=== PATIENT | female | born 1985 | race Caucasian/White ===

== ENCOUNTER 2019-05-16 19:00 | Emergency (ER) | payer MEDICAID ==
[~2019-05-16] VITALS: Ht 167.6 cm; Wt 65.0 kg
[2019-05-16 19:05] VITALS: BP 123/83; TEMP 98.4
[2019-05-16] MEDS ORDERED: PEN-VEE K500 MG PO ×2 (19:17→19:33)
[2019-05-16 19:37] VITALS: PULSE 88
== END 2019-05-16 19:36 | disposition home or self-care (01) ==
LOC: COL.ER 19:00
DX: K08.89 Other specified disorders of teeth and supporting structures (principal); F17.210 Nicotine dependence, cigarettes, uncomplicated

== ENCOUNTER 2019-06-15 12:04 | Emergency (ER) | payer MEDICAID ==
[~2019-06-15] VITALS: Ht 167.6 cm; Wt 62.7 kg
[~2019-06-15 12:04] MED LIST: PEN-VEE K500 MG PO
[2019-06-15 12:13] VITALS: BP 129/97; TEMP 98.5
[2019-06-15] MEDS ORDERED: MOTRIN 800800 MG/TAB PO (13:57)
[2019-06-15] MEDS ORDERED: AMOXICILLIN 50500 MG PO (13:57)
[2019-06-15 14:09] VITALS: PULSE 83
== END 2019-06-15 14:09 | disposition home or self-care (01) ==
LOC: COL.ER 12:04
DX: K02.9 Dental caries, unspecified (principal); K04.7 Periapical abscess without sinus; J06.9 Acute upper respiratory infection, unspecified; Z87.891 Personal history of nicotine dependence

== ENCOUNTER 2020-01-14 09:33 | Emergency (ER) | payer MEDICAID ==
[~2020-01-14] VITALS: Ht 167.6 cm; Wt 66.4 kg
[~2020-01-14 09:33] MED LIST changes: +AMOXICILLIN 50500 MG PO; +MOTRIN 800800 MG/TAB PO
[2020-01-14 09:35] VITALS: TEMP 98.5
[2020-01-14 10:13] LABS: COLLECTION METHOD CLEAN CATCH
[2020-01-14 10:19] LABS: BASO % 0.2 % (0.0-2.0); EOS % 0.1 % (0-4.0); GRAN # 15.8 (1.4-6.5); GRAN % 89.2 % (42.2-75.2); HEMOGLOBIN 13.8 g/dl (12.5-16.0); LYMPH % 5.7 % (20.0-51.0); MEAN CELL VOLUME 86 fl (80.0-100.0); MEAN CORPUSCULAR HEMOGLOBIN 30 pg (27.0-31.0); MEAN CORPUSCULAR HGB CONC 35 g/dl (33.0-37.0); MEAN PLATELET VOLUME 10.1 fl (7.4-10.4); MONO # 0.8 (0.1-0.6); MONO % 4.4 % (1.7-9.3); PLATELET COUNT 233 K/mm3 (130-400); RED BLOOD COUNT 4.67 M/mm3 (4.10-5.30); REDCELL DISTRIBUTION WIDTH-CV 11.6 % (11.5-14.5)
[2020-01-14 10:24] LABS: MUCOUS Present /lpf; PH 8 (5-8); SQUAMOUS EPITHELIAL 0-2 /hpf; URINE APPEARANCE Hazy; URINE BACTERIA None Seen /hpf; URINE BILIRUBIN Negative (NEGATIVE); URINE BLOOD Negative (NEGATIVE); URINE COLOR Yellow; URINE GLUCOSE Negative (NEGATIVE); URINE KETONE Negative (NEGATIVE); URINE LEUKOCYTE ESTERASE Negative (NEGATIVE); URINE NITRATE Negative (NEGATIVE); URINE PROTEIN(semi-quant) Negative (NEGATIVE); URINE RBC 0-2 /hpf; URINE UROBILINOGEN Negative (NEGATIVE)
[2020-01-14 10:33] LABS: ALANINE AMINOTRANSFERASE 10 U/L (4-34); ALBUMIN 4.2 gm/dL (3.5-5.0); ALKALINE PHOSPHATASE 70 U/L (50-136); ANION GAP 8 mmol/L (7-16); AST,SGOT 20 U/L (15-37); BILIRUBIN,TOTAL 0.7 mg/dL (0.0-1.0); BLOOD UREA NITROGEN 17 mg/dL (7-17); CALCIUM 8.6 mg/dL (8.4-10.2); CARBON DIOXIDE 22 mmol/L (22-30); CHLORIDE 106 mmol/L (98-107); CREATININE, serum 0.67 (0.52-1.25); GLUCOSE 102 mg/dL (74-106); LIPASE 55 U/L (23-300); SODIUM 136 mmol/L (137-145); TOTAL PROTEIN 7.6 gm/dL (6.4-8.2)
[2020-01-14 10:34] LABS: C-REACTIVE PROTEIN < 0.5 mg/dL (0.0-0.9)
[2020-01-14] MEDS ORDERED: PHENERGAN 25 TA25 MG PO (11:30)
[2020-01-14 13:18] VITALS: BP 99/64; PULSE 100
== END 2020-01-14 13:29 | disposition home or self-care (01) ==
LOC: COL.ER 09:33
PROVIDERS: Emergency Medicine
DX: R11.2 Nausea with vomiting, unspecified (principal); R10.9 Unspecified abdominal pain; Z87.891 Personal history of nicotine dependence
CPT/HCPCS: C9113; J1885; J2405; J2550; J7030

== ENCOUNTER 2020-12-04 17:30 | Emergency (ER) | payer MEDICAID ==
[~2020-12-04] VITALS: Ht 167.6 cm; Wt 62.3 kg
[~2020-12-04 17:30] MED LIST changes: +PHENERGAN 25 TA25 MG PO
[2020-12-04 17:42] VITALS: TEMP 98.1
[2020-12-04] MEDS ORDERED: FLEXERIL 1010 MG/TAB PO (17:57)
[2020-12-04] MEDS ORDERED: MEDROL 4MG DOSPA4 MG PO (17:58)
[2020-12-04 18:57] VITALS: BP 138/98; PULSE 77
== END 2020-12-04 19:02 | disposition home or self-care (01) ==
LOC: COL.ER 17:30
DX: M62.838 Other muscle spasm (principal); Z87.891 Personal history of nicotine dependence
CPT/HCPCS: J1885

== ENCOUNTER 2020-12-16 14:59 | Emergency (ER) | payer MEDICAID ==
[~2020-12-16] VITALS: Ht 167.6 cm; Wt 63.6 kg
[~2020-12-16 14:59] MED LIST changes: +FLEXERIL 1010 MG/TAB PO; +MEDROL 4MG DOSPA4 MG PO
[2020-12-16 15:07] VITALS: TEMP 99.2
[2020-12-16 16:00] LABS: COLLECTION METHOD CLEAN CATCH
[2020-12-16 16:05] LABS: BASO % 0.6 % (0.0-2.0); EOS % 0.3 % (0-4.0); GRAN # 2.1 (1.4-6.5); GRAN % 65.2 % (42.2-75.2); HEMATOCRIT 44.9 % (37.0-47.0); HEMOGLOBIN 15.1 g/dl (12.5-16.0); LYMPH # 0.6 (1.2-3.4); LYMPH % 19.6 % (20.0-51.0); MEAN CELL VOLUME 88 fl (80.0-100.0); MEAN CORPUSCULAR HEMOGLOBIN 30 pg (27.0-31.0); MEAN CORPUSCULAR HGB CONC 34 g/dl (33.0-37.0); MONO # 0.4 (0.1-0.6); MONO % 13.7 % (1.7-9.3); PLATELET COUNT 199 K/mm3 (130-400); RED BLOOD COUNT 5.08 M/mm3 (4.10-5.30); REDCELL DISTRIBUTION WIDTH-CV 11.2 % (11.5-14.5)
[2020-12-16 16:17] LABS: ALBUMIN 4.3 gm/dL (3.5-5.0); BILIRUBIN,TOTAL 0.2 mg/dL (0.0-1.0); C-REACTIVE PROTEIN 0.7 mg/dL (0.0-0.9); CALCIUM 8.7 mg/dL (8.4-10.2); CREATININE, serum 0.87 (0.52-1.25); POTASSIUM 3.3 mmol/L (3.4-5.0); TOTAL PROTEIN 7.8 gm/dL (6.4-8.2)
[2020-12-16 16:27] LABS: MUCOUS Present /lpf; PH 5 (5-8); URINE APPEARANCE Hazy; URINE BACTERIA None Seen /hpf; URINE BILIRUBIN Negative (NEGATIVE); URINE BLOOD Negative (NEGATIVE); URINE COLOR Amber; URINE GLUCOSE Negative (NEGATIVE); URINE KETONE Trace (NEGATIVE); URINE LEUKOCYTE ESTERASE Negative (NEGATIVE); URINE NITRATE Negative (NEGATIVE); URINE PROTEIN(semi-quant) 1+ (NEGATIVE); URINE UROBILINOGEN Negative (NEGATIVE)
[2020-12-16] MEDS ORDERED: CIPRO 500MG TA500 MG PO (17:25)
[2020-12-16 17:51] VITALS: BP 110/71; PULSE 95
== END 2020-12-16 17:53 | disposition home or self-care (01) ==
LOC: COL.ER 14:59
PROVIDERS: Nurse Practitioner Primary Care
DX: U07.1 COVID-19 (principal); M62.838 Other muscle spasm; N39.0 Urinary tract infection, site not specified; F17.290 Nicotine dependence, other tobacco product, uncomplicated
CPT/HCPCS: J0696; J7030

== ENCOUNTER 2021-06-29 12:19 | Emergency (ER) | payer MEDICAID ==
[~2021-06-29] VITALS: Ht 167.6 cm; Wt 66.8 kg
[~2021-06-29 12:19] MED LIST changes: +CIPRO 500MG TA500 MG PO
[2021-06-29 12:34] VITALS: TEMP 98
[2021-06-29 13:01] LABS: COLLECTION METHOD CLEAN CATCH
[2021-06-29 13:05] LABS: BASO % 0.5 % (0.0-2.0); EOS # 0.1 K/mm3 (0.0-0.7); EOS % 1.4 % (0-4.0); GRAN # 3.9 K/mm3 (1.4-6.5); HEMATOCRIT 42.4 % (37.0-47.0); HEMOGLOBIN 14.1 g/dl (12.5-16.0); LYMPH # 1.5 K/mm3 (1.2-3.4); LYMPH % 25.3 % (20.0-51.0); MEAN CELL VOLUME 90 fl (80.0-100.0); MEAN CORPUSCULAR HEMOGLOBIN 30 pg (27.0-31.0); MEAN CORPUSCULAR HGB CONC 33 g/dl (33.0-37.0); MONO # 0.3 K/mm3 (0.1-0.6); MONO % 5.6 % (1.7-9.3); PLATELET COUNT 284 K/mm3 (130-400); RED BLOOD COUNT 4.72 M/mm3 (4.10-5.30); REDCELL DISTRIBUTION WIDTH-CV 11.6 % (11.5-14.5)
[2021-06-29 13:15] LABS: MUCOUS Present (NOT PRESENT); PH 5 (5-8); URINE APPEARANCE Hazy (CLEAR/HAZY); URINE BACTERIA None Seen (NONE SEEN); URINE BILIRUBIN Negative (NEGATIVE); URINE BLOOD 1+ (NEGATIVE); URINE COLOR Yellow (YELLOW); URINE GLUCOSE Negative (NEGATIVE); URINE KETONE Negative (NEGATIVE); URINE LEUKOCYTE ESTERASE 2+ (NEGATIVE); URINE NITRATE Negative (NEGATIVE); URINE PROTEIN(semi-quant) Negative (NEGATIVE); URINE RBC 0-2 /hpf (0-2); URINE UROBILINOGEN Negative (NEGATIVE)
[2021-06-29 13:16] LABS: ALBUMIN 4.7 gm/dL (3.5-5.0); ALKALINE PHOSPHATASE 64 U/L (40-150); ANION GAP 10 mmol/L (7-16); AST,SGOT 12 U/L (5-34); BILIRUBIN,TOTAL 0.7 mg/dL (0.2-1.2); BLOOD UREA NITROGEN 14 mg/dL (7-19); C-REACTIVE PROTEIN 0.06 mg/dL (0.00-0.50); CALCIUM 9.7 mg/dL (8.4-10.2); CARBON DIOXIDE 22 mmol/L (22-29); CHLORIDE 109 mmol/L (98-107); CREATININE, serum 0.82 mg/dL (0.57-1.11); GLUCOSE 87 mg/dL (70-99); POTASSIUM 3.9 mmol/L (3.5-4.5); SODIUM 141 mmol/L (136-145); TOTAL PROTEIN 8.2 gm/dL (6.2-8.1)
[2021-06-29 13:18] LABS: ALANINE AMINOTRANSFERASE < 6 U/L (0-55)
[2021-06-29] MEDS ORDERED: CEFTIN 250250 MG/TAB PO (14:11)
[2021-06-29] MEDS ORDERED: ZOFRAN ODT4 MG PO (14:11)
[2021-06-29 14:28] VITALS: BP 122/89; PULSE 69
== END 2021-06-29 14:30 | disposition home or self-care (01) ==
LOC: COL.ER 12:19
PROVIDERS: Nurse Practitioner
DX: N39.0 Urinary tract infection, site not specified (principal); F17.290 Nicotine dependence, other tobacco product, uncomplicated
CPT/HCPCS: J0696; J2405; J7030

== ENCOUNTER 2022-08-31 09:09 | Emergency (ER) | payer MEDICAID ==
[~2022-08-31] VITALS: Ht 167.6 cm; Wt 66.8 kg
[~2022-08-31 09:09] MED LIST changes: +CEFTIN 250250 MG/TAB PO; +ZOFRAN ODT4 MG PO
[2022-08-31 10:35] LABS: BASO % 0.6 % (0.0-2.0); EOS # 0.1 K/mm3 (0.0-0.7); EOS % 1.7 % (0.0-4.0); GRAN # 3.2 K/mm3 (1.4-6.5); GRAN % 68.4 % (42.2-75.2); HEMATOCRIT 41.5 % (37.0-47.0); HEMOGLOBIN 13.8 g/dl (12.5-16.0); LYMPH # 1.1 K/mm3 (1.2-3.4); LYMPH % 23.1 % (20.0-51.0); MEAN CELL VOLUME 89 fl (80.0-100.0); MEAN CORPUSCULAR HEMOGLOBIN 30 pg (27-31); MEAN CORPUSCULAR HGB CONC 33 g/dl (33.0-37.0); MEAN PLATELET VOLUME 10.1 fl (7.4-10.4); MONO # 0.3 K/mm3 (0.1-0.6); PLATELET COUNT 238 K/mm3 (130-400); RED BLOOD COUNT 4.65 M/mm3 (4.10-5.30)
[2022-08-31 10:49] LABS: ALBUMIN 4.4 gm/dL (3.5-5.0); BILIRUBIN,TOTAL 0.8 mg/dL (0.2-1.2); CALCIUM 9.3 mg/dL (8.4-10.2); CREATININE, serum 0.84 mg/dL (0.57-1.11); POTASSIUM 4.2 mmol/L (3.5-4.5); TOTAL PROTEIN 7.6 gm/dL (6.2-8.1)
[2022-08-31 11:51] LABS: COLLECTION METHOD CLEAN CATCH
[2022-08-31 11:59] LABS: URINE APPEARANCE Clear (CLEAR/HAZY); URINE BLOOD 3+ (NEGATIVE); URINE COLOR Yellow (YELLOW); URINE GLUCOSE Negative (NEGATIVE); URINE KETONE Negative (NEGATIVE); URINE NITRATE Negative (NEGATIVE); URINE PROTEIN(semi-quant) Negative (NEGATIVE); URINE UROBILINOGEN 0.2 E.U/dL (0.2-1.0)
[2022-08-31 12:03] LABS: MUCOUS Present (NOT PRESENT); URINE BACTERIA Rare /hpf (NONE SEEN)
[2022-08-31 12:50] VITALS: BP 117/79; PULSE 79; TEMP 97.3
== END 2022-08-31 12:52 | disposition home or self-care (01) ==
LOC: COL.ER 09:09
PROVIDERS: Nurse Practitioner
DX: B34.9 Viral infection, unspecified (principal); R05.9 Cough, unspecified; R09.81 Nasal congestion; R11.2 Nausea with vomiting, unspecified; R19.7 Diarrhea, unspecified; Z20.822 Contact with and (suspected) exposure to COVID-19
CPT/HCPCS: J7030

== ENCOUNTER 2024-04-04 07:33 | Emergency (ER) | payer SELFPAY ==
[~2024-04-04] VITALS: Ht 167.6 cm; Wt 71.8 kg
[2024-04-04 07:38] VITALS: TEMP 98.5
[2024-04-04 08:21] LABS: BASO % 0.5 % (0.0-2.0); EOS # 0.1 K/mm3 (0.0-0.7); EOS % 0.8 % (0.0-4.0); GRAN # 6.3 K/mm3 (1.4-6.5); GRAN % 80.4 % (42.2-75.2); HEMATOCRIT 40.2 % (37.0-47.0); HEMOGLOBIN 13.6 g/dl (12.5-16.0); LYMPH # 1.1 K/mm3 (1.2-3.4); MEAN CELL VOLUME 90 fl (80.0-100.0); MEAN CORPUSCULAR HEMOGLOBIN 30 pg (27-31); MEAN CORPUSCULAR HGB CONC 34 g/dl (33.0-37.0); MEAN PLATELET VOLUME 10.3 fl (7.4-10.4); MONO # 0.3 K/mm3 (0.1-0.6); PLATELET COUNT 245 K/mm3 (130-400); RED BLOOD COUNT 4.49 M/mm3 (4.10-5.30)
[2024-04-04 08:43] LABS: ALBUMIN 4.3 g/dL (3.5-5.0); BILIRUBIN,TOTAL 0.6 mg/dL (0.2-1.2); CALCIUM 9.2 mg/dL (8.4-10.2); CREATININE, serum 0.83 mg/dL (0.57-1.11); POTASSIUM 3.9 mEq/L (3.5-4.5); TOTAL PROTEIN 7.4 g/dl (6.2-8.1)
[2024-04-04 09:54] VITALS: BP 118/80; PULSE 61
[2024-04-04] MEDS ORDERED: LITHIUM 30300 MG/CAP PO (15:21)
[2024-04-04] MEDS ORDERED: CYMBALTA 30MG30 MG PO (15:21)
== END 2024-04-04 10:00 | disposition home or self-care (01) ==
LOC: COL.ER 07:33
PROVIDERS: Family Medicine
DX: F41.9 Anxiety disorder, unspecified (principal); F32.A Depression, unspecified; R79.89 Other specified abnormal findings of blood chemistry

== ENCOUNTER 2024-04-04 14:50 | Emergency (ER) | payer SELFPAY ==
[~2024-04-04] VITALS: Ht 167.6 cm; Wt 71.8 kg
[2024-04-04 15:02] VITALS: TEMP 97.8
[2024-04-04] MEDS ORDERED: CYMBALTA 30MG30 MG PO (15:21)
[2024-04-04] MEDS ORDERED: LITHIUM 30300 MG/CAP PO (15:21)
[2024-04-04] MEDS ORDERED: diphenhydrAMINE 50 MG/ML 1 ML VIAL IM ONE (16:15)
[2024-04-04 17:00] VITALS: BP 125/83; PULSE 66
== END 2024-04-04 17:12 | disposition home or self-care (01) ==
LOC: COL.ER 14:50
DX: F06.4 Anxiety disorder due to known physiological condition (principal)
CPT/HCPCS: J1200

== ENCOUNTER 2024-04-10 10:19 | Emergency (ER) | payer SELFPAY ==
[~2024-04-10] VITALS: Ht 167.6 cm; Wt 71.8 kg
[~2024-04-10 10:19] MED LIST changes: +CYMBALTA 30MG30 MG PO; +LITHIUM 30300 MG/CAP PO
[2024-04-10 10:30] VITALS: TEMP 96.8
[2024-04-10] MEDS ORDERED: hydrOXYzine HCl 25 MG TAB PO ONE (11:00)
[2024-04-10 11:20] LABS: COLLECTION METHOD CLEAN CATCH
[2024-04-10 11:22] LABS: BASO % 0.5 % (0.0-2.0); EOS # 0.1 K/mm3 (0.0-0.7); GRAN # 6.3 K/mm3 (1.4-6.5); GRAN % 74.9 % (42.2-75.2); HEMATOCRIT 42.2 % (37.0-47.0); HEMOGLOBIN 14.7 g/dl (12.5-16.0); LYMPH # 1.5 K/mm3 (1.2-3.4); LYMPH % 18.3 % (20.0-51.0); MEAN CELL VOLUME 87 fl (80.0-100.0); MEAN CORPUSCULAR HEMOGLOBIN 30 pg (27-31); MEAN CORPUSCULAR HGB CONC 35 g/dl (33.0-37.0); MEAN PLATELET VOLUME 10.2 fl (7.4-10.4); MONO # 0.4 K/mm3 (0.1-0.6); MONO % 5.1 % (1.7-9.3); PLATELET COUNT 290 K/mm3 (130-400); RED BLOOD COUNT 4.86 M/mm3 (4.10-5.30)
[2024-04-10 11:30] LABS: PH 8.5 (5.0-8.5); URINE APPEARANCE CLEAR (CLEAR/HAZY); URINE BLOOD NEGATIVE (NEGATIVE); URINE COLOR YELLOW (YELLOW); URINE GLUCOSE NEGATIVE (NEGATIVE); URINE KETONE 1+ (NEGATIVE); URINE NITRATE NEGATIVE (NEGATIVE); URINE PROTEIN(semi-quant) NEGATIVE (NEGATIVE); URINE UROBILINOGEN 0.2 E.U/dL (0.2-1.0)
[2024-04-10 11:41] LABS: TRICYCLIC ANTIDEPRESS URINE NEGATIVE (NEGATIVE)
[2024-04-10 11:43] LABS: ALBUMIN 4.5 g/dL (3.5-5.0); BILIRUBIN,TOTAL 0.9 mg/dL (0.2-1.2); CREATININE, serum 0.88 mg/dL (0.57-1.11); POTASSIUM 3.8 mEq/L (3.5-4.5); TOTAL PROTEIN 7.6 g/dl (6.2-8.1)
[2024-04-10] MEDS ORDERED: ATARAX 25MG25 MG/TAB PO (12:07)
[2024-04-10 12:15] VITALS: BP 125/86; PULSE 61
== END 2024-04-10 12:22 | disposition home or self-care (01) ==
LOC: COL.ER 10:19
PROVIDERS: Nurse Practitioner
DX: F41.9 Anxiety disorder, unspecified (principal); G47.00 Insomnia, unspecified